=== PATIENT | male | born 1995 | race Two or more races ===

== ENCOUNTER 2024-03-19 09:58 | Emergency (ER) | payer SELFPAY ==
[~2024-03-19] VITALS: Ht 180.3 cm; Wt 84.1 kg
[2024-03-19 10:04] VITALS: BP 174/97; PULSE 80; RESP 18; TEMP 98.3; O2SAT 99
[2024-03-19] MEDS ORDERED: MORP15TA70 PO (15:32)
[2024-03-19] MEDS ORDERED: CETI-450 PO (15:53)
== END 2024-03-19 12:29 | disposition left against medical advice (07) ==
LOC: EMS 09:58
DX: H92.01 Otalgia, right ear (principal); K08.89 Other specified disorders of teeth and supporting structures; Z53.21 Procedure and treatment not carried out due to patient leaving prior to being seen by health care provider

== ENCOUNTER 2024-03-19 12:54 | Emergency (ER) | payer SELFPAY ==
[~2024-03-19] VITALS: Ht 180.3 cm; Wt 88.6 kg
[2024-03-19 13:13] VITALS: BP 182/100; PULSE 98; RESP 20; TEMP 98.9; O2SAT 100
[2024-03-19] MEDS ORDERED: MORP15TA70 PO (15:32)
[2024-03-19] MEDS: HYDROCODONE/ACETAMINOPHEN 5-325 MG TABLET PO ONE (15:40)
[2024-03-19] MEDS: KETOROLAC TROMETHAMINE 30 MG/ML VIAL IM ONE (15:40)
[2024-03-19] MEDS ORDERED: CETI-450 PO (15:53)
== END 2024-03-19 16:13 | disposition home or self-care (01) ==
LOC: EMS 13:05
DX: K02.9 Dental caries, unspecified (principal); Z85.71 Personal history of Hodgkin lymphoma
CPT/HCPCS: 99283; 96372; J1885